=== PATIENT | male | born 1975 | race Caucasian/White ===

== ENCOUNTER 2017-10-21 19:26 | Emergency (ER) | payer SELFPAY ==
[2017-10-21] VITALS (8 sets, daily range): BP systolic 107–159; BP diastolic 60–96; PULSE 69–109; RESP 14–30; TEMP 37.1; O2SAT 93–98; BMI 40.4
[2017-10-21 20:44] LABS: Absolute Neutrophil Count 9.9 X10^3/uL (2.0-7.7); Basophil# 0.03 X10^3/uL; Basophil% 0.2 % (0-1); Eosinophil# 0.01 X10^3/uL; Eosinophils% 0.1 % (0-5); Hematocrit 38.2 % (40-54); Hemoglobin 13.1 g/dl (13.0-16.5); Mean Corp Hgb Conc 34.3 g/gl (32-36); Mean Corpuscular Hgb 28.7 pg (27.0-32.0); Mean Corpuscular Volume 83.8 fL (80-94); Mean Platelet Vol. 9.7 fl (6.2-12.0); Monocyte# 1.11 X10^3/uL; Monocyte% 8.6 % (0-10); Neutrophil # 9.88 X10^3/uL (2.7-7.7); Neutrophil % 76.6 % (47-70); Platelet Count 284 K/mm3 (150-450); RBC Distribution Width CV 12.4 % (11.6-14.6); RBC Distribution Width SD 37.9 fl (35.1-43.9); Red Blood Count 4.56 M/mm3 (4.6-6.2); White Blood Count 12.9 K/mm3 (4.4-11.0)
[2017-10-21 20:48] LABS: POSITIVE COUNT NO; POSITIVE DIFFERENTIAL NO; POSITIVE MORPHOLOGY NO
[2017-10-21] MEDS: Ondansetron 4 MG/2 ML Vial IV (20:57)
[2017-10-21] MEDS: Morphine 4 MG/ML Syringe IV (20:57)
--- NOTE | 2017-10-21 21:12 | NURSING ---
LAB CALLED WITH A CRITICAL OF 544
[2017-10-21 21:13] LABS: Anion Gap 8 (5-15); BUN 13 mg/dL (7-18); BUN/Creat Ratio 8.9 RATIO (10-20); Calcium,Total 8.8 mg/dL (8.5-10.1); Chloride 97 mmol/L (98-107); Creatinine, Serum 1.46 mg/dL (0.70-1.30); EST Glomerular Filtration Rate 57 mL/min (>60); Est Glom Filt Rate - Afr Amer 69 mL/min (>60); Estimated Creatinine Clearance 69.44 ml/min; Glucose 544 mg/dL (74-106); Potassium 4.5 mmol/L (3.5-5.1); Sodium Level 129 mmol/L (136-145)
[2017-10-21] MEDS: 0.9% Normal Saline 1,000 ML 1000 ML IV (21:43)
--- NOTE | 2017-10-21 23:30 | ED.DCSUM_ITS ---
- ER Visit Summary Date of Service: 10/21/17 Chief Complaint: Patient reported nausea and abdominal pain approximately 5-6 days ago. He now presents because of buttocks pain that radiates to his rectum and anteriorly. History of Present Illness: The patient is a 42 M who has history of type 2 diabetes who discontinued taking his Metformin because he thought the Metformin was a cause of his abdominal pain and buttocks pain. He does complain of subjective fever with chills. He does report intermittent blurred vision. He denies earache, runny nose or sore throat. He denies chest pain or palpitations. He denies orthopnea PND. He denies dyspnea, cough or dyspnea on exertion. He does report abdominal pain with one episode of vomiting. He denies dysuria, hematuria or urgency. He has a Michel and nocturia. He denies myalgias arthralgias or back pain. He does complain of rash and concern he has an abscess. He denies any antibiotic allergies. Physical Examination: Patient's vital signs are remarkable heart rate 109. He is not febrile. BMI is 40.4. Head is atraumatic normocephalic. Pupils are equal round reactive. Extraocular muscles are intact. TMs are pearly white with landmarks noted. Nares patent with no drainage. Posterior pharynx without erythema or exudate. Uvula is midline. There is no dysphonia or dysphasia. Trachea is midline. There is no stridor with auscultation of the neck. Heart is regular without murmur, gallop or rub. S1 and S2 are normal. Lungs are clear to auscultation with good movement of air bilaterally. Abdomen is soft nontender with normal bowel sounds. Patient has a right buttocks abscess. There is no fissures, fistulas or hemorrhoids on rectal exam. He complains of discomfort however there is no fluctuance. The prostate is normal. Of note patient complained of pain with IV bolus of saline. Test Results: White count elevated 12.9 with 77 segs. Glucose is 544 with pseudo-hyponatremia, 129. Creatinine is elevated 1.46. He has been instructed to discontinue taking Advil. Emergency Department Course and Treatment: IV was established she was given 1 L normal saline. He also received 10 units of regular insulin subcu. Patient was consented for procedural sedation with propofol. He was explained the risk benefits of procedural sedation. He denied allergy to soy products or egg products. He reports no problems with sedation in the past. He was given opportunity ask questions and none were asked. Patient received a total of 300 mg of propofol. The area was anesthetized by local infiltration with lidocaine. Incision was made with free flow of purulent material. Blunt dissection was undertaken. Wick was placed after cavity was irrigated. He did receive 4.5 g of Zosyn in the department. Treatment Plan: Since he has no physician in the area he was referred to Dr. Montiel who is dermatology nurse practitioner for surgery no doc. He was given a prescription for Augmentin 875 mg twice daily #14 and instructed to take his medication. He also was instructed to not take ibuprofen or Aleve. Disposition: Discharged to home in stable improved condition with spouse Impression: 1. Right buttocks abscess 2. Hyperglycemia, blood sugar 544 3. Acute renal insufficiency 4. Deep procedural sedation with propofol (9 minutes 45 seconds) 5. Incision and drainage of right buttock access This note was generated with [employer] dictation software. It may contain incorrect words, spelling, and punctuation that were not noted in review of the chart prior to signing ED Disposition - Plan for ED Patient: Disposition: Home or Assisted Living Chief Complaint: Other, Pain/Inj Instructions: ED Abscess IandD, ED Insufficiency Renal, ED Hyperglycemia Diabetic Prescriptions: Oxycodone HCl/Acetaminophen [Percocet 5/325] 1 tab PO Q6H PRN PRN 3 Days #12 tab PRN Reason: Pain Amox/Clavulanate Tablet [Augmentin Tablet] 875 mg PO Q12H #20 tab Referrals: [facility] Doctor,Out of [Primary Care Provider] - Gustavo Cano MD [STAFF PHYSICIAN] - 2 Days for wound check
[2017-10-21] MEDS: Propofol 200 MG/20 ML Vial IV BOLUS (23:43)
[2017-10-22 00:19] VITALS: BP 162/83; PULSE 96; RESP 16; O2SAT 97
[2017-10-22 00:31] LABS: Bedside Glucose 410 mg/dL (70-110)
== END 2017-10-22 00:20 | disposition home or self-care (01) ==
PROVIDERS: Emergency Provider Emergency Medicine
DX: L02.31 Cutaneous abscess of buttock (principal); E11.65 Type 2 diabetes mellitus with hyperglycemia; N28.9 Disorder of kidney and ureter, unspecified; E66.9 Obesity, unspecified; Z68.41 Body mass index [BMI] 40.0-44.9, adult
CPT/HCPCS: 10061; 10080; 80048; 82962; 85025; 96365; 96375; 99284; J7030; A4216; J2405

== ENCOUNTER 2017-11-19 20:29 | Emergency (ER) | payer SELFPAY ==
[2017-11-19 20:31] VITALS: BP 151/86; PULSE 92; RESP 16; TEMP 36.8; O2SAT 97; BMI 38.4
--- NOTE | 2017-11-19 20:35 | RAD_ITS ---
STUDY: X-RAY - LEFT FOOT CLINICAL: Male, 42 years old. Left foot pain laterally TECHNIQUE: 3 view(s) of the foot. COMPARISON: None. FINDINGS: Normal talus, calcaneus, and tarsal bones. Normal visualized subtalar, talonavicular, calcaneocuboid, tarsal and tarsometatarsal articulations. Normal metatarsi. Normal metatarsophalangeal joint of the great toe. Normal tibial and fibular sesamoid bones. Normal interphalangeal joint of the great toe. Normal phalanges of the great toe. Normal second through fifth metatarsophalangeal joints. Normal interphalangeal joints and phalanges of the lesser toes. The soft tissue structures are unremarkable. RAD/Foot min 3 Views IMPRESSION: Normal x-ray examination of the foot. Electronically Signed: Octaviano Rendon DO at 20:43 EDT Tel , Service support ,
--- NOTE | 2017-11-19 21:27 | ED.VISSUMM ---
- ER Visit Summary Date of Service: 11/19/17 Chief Complaint: Left foot pain History of Present Illness: The patient is a 42 M with an inversion of his left foot earlier this morning. Physical Examination: Patient has no tenderness over the proximal fibula or ankle. His pain is over the proximal fifth metatarsal region. Emergency Department Course and Treatment: X-rays negative patient will be discharged with crutches and a postop shoe. Impression: Left foot strain This note was generated with [employer] dictation software. It may contain incorrect words, spelling, and punctuation that were not noted in review of the chart prior to signing ED Disposition - Plan for ED Patient: Disposition: Home or Assisted Living Chief Complaint: Lower Extremity Injury Instructions: ED Sprain Foot Prescriptions: Naproxen [Naprosyn] 500 mg PO BID PRN #20 tab Referrals: Care Physician,No Primary [Primary Care Provider] - 2 Days
--- NOTE | 2017-11-19 21:30 | ED.DCSUM_ITS ---
- ER Visit Summary Date of Service: 11/19/17 Chief Complaint: Left foot pain History of Present Illness: The patient is a 42 M with an inversion of his left foot earlier this morning. Physical Examination: Patient has no tenderness over the proximal fibula or ankle. His pain is over the proximal fifth metatarsal region. Emergency Department Course and Treatment: X-rays negative patient will be discharged with crutches and a postop shoe. Impression: Left foot strain This note was generated with [employer] dictation software. It may contain incorrect words, spelling, and punctuation that were not noted in review of the chart prior to signing ED Disposition - Plan for ED Patient: Disposition: Home or Assisted Living Chief Complaint: Lower Extremity Injury Instructions: ED Sprain Foot Prescriptions: Naproxen [Naprosyn] 500 mg PO BID PRN #20 tab Referrals: Care Physician,No Primary [Primary Care Provider] - 2 Days
[2017-11-19 21:48] VITALS: RESP 18
== END 2017-11-19 21:48 | disposition home or self-care (01) ==
LOC: ED 21:37
PROVIDERS: Emergency Provider Emergency Medicine
DX: S96.912A Strain of unspecified muscle and tendon at ankle and foot level, left foot, initial encounter (principal); X50.1XXA Overexertion from prolonged static or awkward postures, initial encounter; Y93.9 Activity, unspecified; Y92.9 Unspecified place or not applicable
CPT/HCPCS: 73630; 99284